=== PATIENT | female | born 2000 | race Caucasian/White ===

== ENCOUNTER 2022-01-10 17:50 | Emergency (ER) | payer OTHER, SELFPAY ==
[2022-01-10 18:14] VITALS: BP 132/80; PULSE 92; RESP 16; TEMP 36.8; O2SAT 100
--- NOTE | 2022-01-10 19:07 | ED.GENADULT ---
HPI - General Adult General Chief complaint: Urogenital-Female Stated complaint: poss uti Source: patient Mode of arrival: ambulatory Limitations: no limitations History of Present Illness HPI narrative: Patient presents for evaluation of urinary symptoms for the last 2 days. Symptoms include incomplete emptying, urgency, foul odor and some mild dysuria. No fever, chills, abdominal pain, nausea, vomiting, low back pain, vaginal bleeding or discharge. She is not . No additional complaints or concerns. Related Data Home Medications Medication Instructions Recorded Confirmed norethindrone 1 mg-ethinyl 1 tablet PO DAILY 01/10/22 01/10/22 estradiol 20 mcg (21)-iron 75 mg (7) tablet (04/07 (28)) Allergies Allergy/AdvReac Type Severity Reaction Status Date / Time No Known Allergies Allergy Verified 01/10/22 18:25 Review of Systems Review of Systems: CONSTITUTIONAL: Denies fever, chills, or sweats. EYES: Denies visual changes, redness, or discharge. ENT: Denies rhinorrhea, congestion, sore throat, or otalgia. CARDIOVASCULAR: Denies chest pain, palpitations, or edema. RESPIRATORY: Denies cough or dyspnea. GASTROINTESTINAL: Denies abdominal pain, nausea, vomiting, or diarrhea. GENITOURINARY: Reports urgency, incomplete emptying, mild dysuria, foul odor to her urine. Denies vaginal bleeding or discharge SKIN: Denies rash or itching. MUSCULOSKELETAL: Denies back pain, joint pain, or myalgia. NEUROLOGIC: Denies headache, numbness, dizziness, or weakness. PSYCHIATRIC: Denies anxiety or depression. [facility] Past Medical History Medical History No pertinent past medical history Surgical History Surgical History No pertinent past surgical history Family History Family History Mother Family history non-contributory Social History Social History Smoking status: Never smoker Substance use: never Gender identity (if verbalized by the patient): Female Exam Narrative: GENERAL: Well-appearing, well-nourished, and in no acute distress. HEAD: Normocephalic, atraumatic. EYES: PERRLA and EOMI. ENT: Nares clear, no rhinorrhea or epistaxis. Mucous membranes moist. Oropharynx without tonsillar hypertrophy exudate or other lesions. Bilateral TMs pearly linares nonbulging NECK: Supple. No adenopathy or masses. No carotid bruits or JVD CHEST: Clear to auscultation. No respiratory distress. No wheezes rales or rhonchi HEART: Regular rate and rhythm. No murmur heard. Normal peripheral pulses. ABDOMEN: Soft, nontender, nondistended, normal active bowel sounds. BACK: No CVA tenderness EXTREMITIES: Normal range of motion. No edema. SKIN: Warm, dry, no rash. NEURO: No focal deficits. Alert and oriented x3. PSYCH: Normal mood and affect. Course Course Emergency Course: This is a 22-year-old female who presented for evaluation of urinary symptoms. Nitrate positive urine. We will send for culture. Treat with Macrobid. Discussed starting Pyridium as well, she was agreeable. Increase hydration. Follow-up outpatient for further evaluation and treatment. Go to the ER for fever, chills, intractable vomiting, increased pain. Patient in agreement with plan of care Level of Care: Express Care Visit Vital Signs Vital signs: Vital Signs Temperature 36.8 C 01/10/22 18:14 Pulse Rate 92 01/10/22 18:14 Respiratory Rate 16 01/10/22 18:14 Blood Pressure 132/80 01/10/22 18:14 Pulse Oximetry 100 01/10/22 18:14 Oxygen Delivery Room Air 01/10/22 18:14 Temperature 36.8 C 01/10/22 18:14 Pulse Rate 92 01/10/22 18:14 Respiratory Rate 16 01/10/22 18:14 Blood Pressure 132/80 01/10/22 18:14 Pulse Oximetry 100 01/10/22 18:14 Oxygen Delivery Room
== END 2022-01-10 19:08 | disposition home or self-care (01) ==
PROVIDERS: Emergency Provider Nurse Practitioner; PCP Internal Medicine
DX: N39.0 Urinary tract infection, site not specified (principal)
CPT/HCPCS: 81003; 87077; 87086; 87186; 99213; G0463

== ENCOUNTER 2022-02-07 17:41 | Emergency (ER) | payer OTHER, SELFPAY ==
--- NOTE | 2022-02-07 17:42 | ED.FEMALEGU ---
HPI - Female Genitourinary General Chief complaint: Urogenital-Female Stated complaint: poss uti Time Seen by Provider: 02/07/22 17:42 Source: patient and RN notes reviewed History of Present Illness HPI Narrative: patient is a 21-year-old female who presents to urgent care with complaints of possible UTI due to urinary frequency, burning and odor. 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 States that she was unable to get the medication filled due to finances and has been using Monistat. Patient states the new symptoms started today. Patient was treated for UTI from our facility on January 10 with Macrobid and culture reflux to E. coli. Patient currently denies of any low back pain, nausea, vomiting, fever, abdominal pain. No other acute complaints. No acute distress noted. Patient aware of the plan of care. Some parts of this dictation were generated by voice recognition software and may contain typographical and/or grammatical inaccuracies. Related Data Home Medications Medication Instructions Recorded Confirmed norethindrone 1 mg-ethinyl 1 tablet PO DAILY 01/10/22 01/10/22 estradiol 20 mcg (21)-iron 75 mg (7) tablet (04/07 (28)) Allergies Allergy/AdvReac Type Severity Reaction Status Date / Time No Known Allergies Allergy Verified 01/10/22 18:25 Review of Systems Review of Systems: CONSTITUTIONAL: Denies fever, chills, or sweats. EYES: Denies visual changes, redness, or discharge. ENT: Denies rhinorrhea, congestion, sore throat, or otalgia. CARDIOVASCULAR: Denies chest pain, palpitations, or edema. RESPIRATORY: Denies cough or dyspnea. GASTROINTESTINAL: Denies abdominal pain, nausea, vomiting, or diarrhea. GENITOURINARY: Reports dysuria, odor SKIN: Denies rash or itching. MUSCULOSKELETAL: Denies back pain, joint pain, or myalgia. NEUROLOGIC: Denies headache, numbness, or weakness. All other systems reviewed are negative, except as documented in HPI. [facility] Past Medical History Medical History (Updated 02/07/22 @ 18:04 by ROBERT Arcos) No pertinent past medical history Surgical History Surgical History No pertinent past surgical history Family History Family History Mother Family history non-contributory Social History Social History Smoking status: Never smoker Substance use: never Gender identity (if verbalized by the patient): Female Comments At the time of my signature, I reviewed and agree with the nursing past medical, surgical, social, and family history. There is no relevant family history pertinent to the patient complaint. Exam Narrative: GENERAL: This is a well-nourished, well-developed patient, in no apparent distress. HEAD: normocephalic, atraumatic. EYES: PERRL. Sclera clear/white. Vision is grossly intact. EARS: External ears normal NOSE: External nose normal with no obvious nasal discharge, nares without redness, no rhinorrhea. THROAT: Mucous membranes moist NECK: Neck supple CARDIOVASCULAR: Regular rate and rhythm without murmurs, gallops, or rubs. RESPIRATORY: Clear to auscultation. Breath sounds equal bilaterally. No wheezes, rales, or rhonchi. SKIN: warm, intact with no suspicious lesions or rash, good texture and turgor. NEURO: awake, alert, and oriented to person, place and time. There were no obvious focal neurologic abnormalities. EXTREMITIES: No clubbing, cyanosis, or edema. BACK: negative bilateral CVA tenderness. Course Course Level of Care: Express Care Visit Vital Signs Vital signs: Vital Signs Temperature 97.7 F 02/07/22 17:46 Pulse Rate 98 02/07/22 17:46 Respiratory Rate 20 02/07/22 17:46 Blood Pressure 146/85 H 02/07/22 17:46 Pulse Oximet
[2022-02-07 17:46] VITALS: BP 146/85; PULSE 98; RESP 20; TEMP 36.5; O2SAT 98
== END 2022-02-07 18:08 | disposition home or self-care (01) ==
PROVIDERS: Emergency Provider Nurse Practitioner Family; PCP Internal Medicine
DX: N39.0 Urinary tract infection, site not specified (principal)
CPT/HCPCS: 81003; 87077; 87086; 87186; 99213; G0463

== ENCOUNTER 2023-02-22 12:33 | Outpatient (CLI) | payer OTHER, SELFPAY ==
[2023-02-22 13:03] LABS: SARS-CoV-2 Ag Negative (Negative)
== END 2023-02-22 12:34 | disposition home or self-care (01) ==
LOC: CHSLAB 12:35
PROVIDERS: PCP Nurse Practitioner Family; Visit Provider Nurse Practitioner Family
DX: R05.9 Cough, unspecified (principal)
CPT/HCPCS: 87426; C9803

== ENCOUNTER 2024-07-26 12:53 | Emergency (ER) | payer OTHER, SELFPAY ==
--- OUTSIDE RECORDS SUMMARY | 2024-07-26 12:56 | XMS_ITS | Referral Summary ---
Author Organization [facility] [address] Address [address] [place] [address] Care Team Providers Care Accredited Pharmacy Technician Name Role Phone Marco Arnett MD Primary Care Provider [phone] Allergies No known active allergies Medications norethindrone-e. estradioL-iron (04/07) 1 mg-20 mcg (21)/75 mg (7) per tablet TAKE 1 TABLET BY MOUTH EVERY DAY 84 tablet 12/04/2022 Active Active Problems Problem Noted Date Diagnosed Date Dysuria 11/03/2021 Social History Tobacco Use Types Packs/Day Years Used Date Smoking Tobacco: Never Smokeless Tobacco: Never Alcohol Use Standard Drinks/Week Comments No 0 (1 standard drink = 0.6 oz pur e alcohol) PHQ-2 Answer Date Recorded PHQ-2 Total Score (If total score is 3 or more points, staff should administer the PHQ-9) 0 10/10/2021 Comments No Sex and Gender Information Value Date Recorded Sex Assigned at Not on file Legal Sex Female 12:04 AM GAS APPLIANCE REPAIRER Gender Identity Not on file Sexual Orientation Not on file Last Filed Vital Signs Vital Sign Reading Time Taken Comments Blood Pressure 118/78 04/04/2023 6:56 PM GAS APPLIANCE REPAIRER Pulse 107 04/04/2023 6:56 PM GAS APPLIANCE REPAIRER Temperature 36.2 C (97.2 F) 04/04/2023 6:56 PM GAS APPLIANCE REPAIRER Respiratory Rate 18 04/04/2023 6:56 PM GAS APPLIANCE REPAIRER Oxygen Saturation 97% 04/04/2023 6:56 PM GAS APPLIANCE REPAIRER Inhaled Oxygen Concentration - - Weight 67.6 kg (149 lb) 04/04/2023 6:56 PM GAS APPLIANCE REPAIRER Height 160 cm (5' 3 ) 04/04/2023 6:56 PM GAS APPLIANCE REPAIRER Body Mass Index 26.39 04/04/2023 6:56 PM GAS APPLIANCE REPAIRER Plan of Treatment Not on file Procedures Procedure Name Priority Date/Time Associated Diagnosis Comments HEPATITIS C ANTIBODY Routine 01/31/2022 9:57 AM GAS APPLIANCE REPAIRER Screening for STD (sexually transmitted disease) N. GONORRHOEAE/C. TRACHOMATIS AMPLIFICATION Routine 10/27/2021 3:39 PM CDT Screen for STD (sexually transmitted disease) PAP WITH REFLEX TO HIGH RISK HPV Routine 10/10/2021 3:58 PM CDT Well woman exam Screening examination for STD (sexually transmitted disease) from Last 3 Months or Most Recently Relevant to Health Maintenance Results * Hepatitis C antibody (01/31/2022 9:57 AM GAS APPLIANCE REPAIRER) Hep C Ab Nonreactive Nonreactive [facility] ([place]) Comment: Interpretive Data Nonreactive: Antibodies to HCV not detected. Does NOT exclude the possibility of recent exposure to HCV. Equivocal: Equivocal for HCV antibodies. Supplemental molecular testing will be automatically performed to determine infection status in accordance with current CDC screening recommendations. Reactive: Positive for HCV antibodies. This may represent current or past HCV infection. Supplemental molecular testing will be automatically performed to determine current infection status in accordance with current CDC screening recommendations. Interpretive data was last revised on 2019. Testing performed by: [facility], [address] [place] [address], [place]., [address] Blood 01/31/2022 9:57 AM GAS APPLIANCE REPAIRER 01/31/2022 4:36 PM GAS APPLIANCE REPAIRER us Rosaura Martin NP LAB MICROBIOLOGY - GENERAL ORDERABLES Final Result [facility] ([place]) [address] [facility] [place] [address] * N. gonorrhoeae/C. trachomatis Amplification Urine (10/27/2021 3:39 PM CDT) C. trachomatis RNA Negative Negative [facility] - 01 N. gonorrhoeae RNA Negative Negative [facility] - 01 Urine (None) 10/27/2021 3:39 PM CDT 10/27/2021 Comment:none Narrative [facility] - 10/28/2021 9:07 PM CDT Performed at: [address] [id number] Marble Cutter Operator: Yarely Way MD, Phone: [phone] Bernadette Manuel CARPENTER ROUGH LAB MICROBIOLOGY - GENERA L ORDERABLES Final Result [facility] - * Pap with reflex to High Risk HPV (10/10/2021 3:58 PM CDT) Clinical indication Comment [facility] - 01 Comment:NEGATIVE FOR INTRAEP ITHELIAL LESION OR MALIGNANCY. Specimen adequacy: Comment [facility] - 01 Comment: Satisfactory for evaluation. Endocervical and/or squamous metaplastic cells (endocervical component) are present. Clinician provided ICD10 Comment [facility] - 01 Comment: Z01.419 Z11.3 Performed by Comment [facility] - 01 Comment:Amirah Flores, Cytotec hnologist (ASCP) . . [facility] - 01 Note: Comment [facility] - 01 Comment: The Pap smear is a screening test designed to aid in the detection of premalignant and malignant conditions of the uterine cervix. It is not a diagnostic procedure and should not be used as the sole means of detecting cervical cancer. Both false-positive and false-negative reports do occur. Test methodology Comment [facility] - 01 Comment: This liquid based ThinPrep(R) pap test was screened with the use of an image guided system. . Comment [facility] - 01 Comment: The HPV DNA reflex criteria were not met with this specimen result therefore, no HPV testing was performed. Thin prep 10/10/2021 3:58 PM CDT 10/12/2021 Narrative [facility] - 10/13/2021 10:11 AM CDT Performed at: - [address] [id number] Marble Cutter Operator: Yarely Way MD, Phone: [phone] Specimen Comment: No. of containers..01 ThinPrep Vial us Bernadette Manuel [facility] LAB CYTOLOGY ORDERABLES F inal Result [facility] - 01 from Last 3 Months or Most Recently Relevant to Health Maintenance Insurance [facility] [place] HMO/PPO Address: [address] [address] Care Teams Accredited Pharmacy Technician Relationship Specialty Start Date End Date Marco Arnett MD [address] [place] [address] PCP - General Pediatrics 11/04/17
--- OUTSIDE RECORDS SUMMARY | 2024-07-26 12:56 | XMS_ITS | Clinical Summary ---
Author Organization [facility] Address [address] [place] [address] Care Team Providers Care Trolley Car Mechanic Name Role Phone Abimbola Cross MD Primary Care Provider [phone] Source Comments [facility],non-owned Affiliates and Associated Physician Practices is amultiple site organization consisting of ambulatory clinics and hospital sitesin [place], [place], [place] and [place]. This disclosure is being madepursuant to the Care Everywhere program and may not contain all information available regarding this patient. Last updated 17.[facility] Allergies No known active allergies Medications * Be aware that medications may not be up to date on this document. Alwaysverify current medications with the patient. norethin-eth estradiol-FE (LOESTRIN FE 04/07; JUNEL FE 04/07; MICROGESTIN FE 04/07) 1-20 MG-MCG tabletIndication s:Contraceptive Therapy Take 1 tablet by mouth once daily Reasons: Control Treatment 3 packet 2 0 Active norethin-eth estrad-fe biphas (LO LOESTRIN FE) 1 MG-10 MCG / 10 MCG tablet Take 1 (one) tablet by mouth once daily 3 packet 1 Active Active Problems No known active problems Immunizations Immunization Administration Dates Next Due INFLUENZA VACCINE, QUADR. (F LUZONE; FLULAVAL; FLUARIX; AFLURIA QUADRIVALENT; 6MO+), 0.5 ML (IIV4) 01/29/2018 Family History Medical History Relation Name Comments Anxiety Disorder Father CAD (Coronary Artery Disease) Maternal Grandfather Cancer - Lung Maternal Grandmother Anxiety Disorder Mother Cancer - Breast Paternal Aunt >50 Diabetes - Type 2 Paternal Grandfather Anxiety Disorder Sister Relation Name Status Comments Father Alive Maternal Grandfather Maternal Grandmother Mother Alive Paternal Aunt Paternal Grandfather Sister Alive Social History Tobacco Use Types Packs/Day Years Used Date Smoking Tobacco: Never Smokeless Tobacco: Never Alcohol Use Standard Drinks/Week Comments No 0 (1 standard drink = 0.6 oz pur e alcohol) Comments No Sex and Gender Information Value Date Recorded Sex Assigned at Not on file Legal Sex Female 2:04 PM CDT Gender Identity Not on file Sexual Orientation Not on file Last Filed Vital Signs Vital Sign Reading Time Taken Comments Blood Pressure 126/66 11/14/2019 3:11 PM CDT Pulse 92 11/14/2019 3:11 PM CDT Temperature 36.7 C (98 F) 11/14/2019 3:11 PM CDT Respiratory Rate 18 11/14/2019 3:11 PM CDT Oxygen Saturation 99% 11/14/2019 3:11 PM CDT Inhaled Oxygen Concentration - - Weight 59 kg (130 lb) 11/14/2019 3:11 PM CDT Height 160 cm (5' 3 ) 11/14/2019 3:11 PM CDT Body Mass Index 23.03 11/14/2019 3:11 PM CDT Plan of Treatment Health Maintenance Due Date Last Done Comments HIV SCREENING 10/05/2014 HPV VACCINE (1 - 3-dose series) 10/05/2014 HEPATITIS C SCREENING 10/01/2017 DTAP/TDAP/TD VACCINES (1 - Tdap) 10/05/2018 HEPATITIS B VACCINE (1 of 3 - 19+ 3-dose series) 10/05/2018 CHLAMYDIA/GONORRHEA SCREENING 06/25/2019 06/24/2018 COVID-19 VACCINE (1 - 2023-2 5 season) 2023 DEPRESSION SCREENING 03/19/2024 INFLUENZA VACCINE (Season Ended) 2024 01/30/20 18 ZOSTER VACCINE (1 of 2) 10/05/2049 HIB VACCINE Aged Out No longer eligi ble based on patient's age to complete this topic MENINGOCOCCAL (Group B) VACC INE SHARED DECISION-MAKING Aged Out No longer eligibl e based on patient's age to complete this topic MENINGOCOCCAL GROUPS A/C/Y/W VACCINE Aged Out No longer eligible b ased on patient's age to complete this topic PNEUMOCOCCAL VACCINE Aged Out No long er eligible based on patient's age to complete this topic Procedures Procedure Name Priority Date/Time Associated Diagnosis Comments VAGINITIS PLUS (BV CA CT NG TRICH) Routine 06/24/2018 3:32 PM CDT Vaginal burning from Last 3 Months or Most Recently Relevant to Health Maintenance Results * VAGINITIS PLUS (BV CA CT NG TRICH) (06/24/2018 3:32 PM CDT) Atopobium vaginae Low - 0 Score [facility] ACCOUNT BILL BVAB 2 Low - 0 Score [facility] ACCOUNT BILL Megashaera Low - 0 Score [facility] ACCOUNT BILL Comment: Calculate total score by adding the 3 individual bacterial vaginosis (BV) marker scores together. Total score is interpreted as follows: Total score 0-1: Indicates the absence of BV. Total score 2: Indeterminate for BV. Additional clinical data should be evaluated to establish a diagnosis. Total score 3-6: Indicates the presence of BV. . This test was developed and its performance characteristics determined by [facility]. It has not been cleared or approved by the Food and Drug Administration. The FDA has determined that such clearance or approval is not necessary. Jenifer albicans SANJAY Negative Negative [facility] ACCOUNT BILL Jenifer glabrata SANJAY Negative Negative [facility] ACCOUNT BILL Comment: This test was developed and its performance characteristics determined by [facility]. It has not been cleared or approved by the Food and Drug Administration. The FDA has determined that such clearance or approval is not necessary. Trichomonas vaginalis by SANJAY Negative Negative [facility] ACCOUNT BILL Chlamydia Trachomatis SANJAY Negative Negative [facility] ACCOUNT BILL GC SANJAY Negative Negative [facility] ACCOUNT BILL Microbiology ENTIRE VAGINA / Unknown 06/24/2018 3:32 PM CDT 06/24/2018 Narrative Resulting Agency Comment [facility] [address] [id number] Alana Andino MD LAB - MICROBIOLOGY ORDERABLES Final Result [facility] ACCOUNT BILL [address] [place] [address] from Last 3 Months or Most Recently Relevant to Health Maintenance Insurance [employer] Care Teams Trolley Car Mechanic Relationship Specialty Start Date End Date Abimbola Cross MD PCP - General Family Medicine 01/29/18
--- OUTSIDE RECORDS SUMMARY | 2024-07-26 12:56 | XMS_ITS | Clinical Summary ---
Author Organization [facility] [id number] [place] Address [address] [place] [address] Care Team Providers Care Linen Room Houseperson Name Role Phone Marco Arnett MD Primary Care Provider [phone] Allergies No known active allergies Medications norethindrone-e. estradioL-iron (04/07) 1 mg-20 mcg (21)/75 mg (7) per tablet TAKE 1 TABLET BY MOUTH EVERY DAY 84 tablet 12/04/2022 Active Active Problems Problem Noted Date Diagnosed Date Dysuria 11/03/2021 Family History Medical History Relation Name Comments Hyperlipidemia Father Hypertension Father Ovarian cancer Father's Sister Heart disease Maternal Grandfather Lung cancer Maternal Grandmother Crohn's disease Mother Heart disease Paternal Grandfather Relation Name Status Comments Father Father's Sister Maternal Grandfather Maternal Grandmother Mother Paternal Grandfather Social History Tobacco Use Types Packs/Day Years [...] on file Legal Sex Female 12:04 AM DIGITAL IMAGER Gender Identity Not on file Sexual Orientation Not on file Obstetrics History Para Term AB IAB SAB Ectopic Multiple Livin g Live Births 0 0 0 0 0 0 0 0 0 0 0 Last Filed Vital Signs Vital Sign Reading Time Taken Comments Blood Pressure 118/78 04/04/2023 6:56 PM DIGITAL IMAGER Pulse 107 04/04/2023 6:56 PM DIGITAL IMAGER Temperature 36.2 C (97.2 F) 04/04/2023 6:56 PM DIGITAL IMAGER Respiratory Rate 18 04/04/2023 6:56 PM DIGITAL IMAGER Oxygen Saturation 97% 04/04/2023 6:56 PM DIGITAL IMAGER Inhaled Oxygen Concentration - - Weight 67.6 kg (149 lb) 04/04/2023 6:56 PM DIGITAL IMAGER Height 160 cm (5' 3 ) 04/04/2023 6:56 PM DIGITAL IMAGER Body Mass Index 26.39 04/04/2023 6:56 PM DIGITAL IMAGER Plan of Treatment Health Maintenance Due Date Last Done Comments DTaP/Tdap/Td Vaccine (2 - Tdap) 10/05/2010 04/30/2001 Varicella Vaccines (1 of 2 - 13+ 2-dose series) 10/05/2012 HPV Vaccines (1 - 3-dose series) 10/05/2014 Hepatitis B Screening 10/05/2017 Cervical Cancer Screening 10/10/2022 10/10/2021 Depression Screening 10/10/2022 10/10/2021, 10/04/2020 Regular Well Visit/Exam 18-64 10/10/2022, 10/04/2020 Chlamydia and Gonorrhea (GC/CT) Screening 10/27/2022 10/27/2021, 10/10/2021, 10/04/2020 Influenza Vaccine (Season Ended) 2024 01/29/2018 Hepatitis C Screening Completed 01/31/2022 Pneumococcal vaccine <65 Aged Out No longer eligible based on patient's age to complete this topic Procedures Procedure Name Priority Date/Time Associated Diagnosis Comments HEPATITIS C ANTIBODY Routine 01/31/2022 9:57 AM DIGITAL IMAGER Screening for STD (sexually transmitted disease) N. GONORRHOEAE/C. TRACHOMATIS AMPLIFICATION Routine 10/27/2021 3:39 PM CDT Screen for STD (sexually transmitted disease) PAP WITH REFLEX TO HIGH RISK HPV Routine 10/10/2021 3:58 PM CDT Well woman exam Screening examination for STD (sexually transmitted disease) from Last 3 Months or Most Recently Relevant to Health Maintenance Results * Hepatitis C antibody (01/31/2022 9:57 AM DIGITAL IMAGER) Pathologist [facility] Hep C Ab Nonreactive Nonreactive [facility] ([place]) Comment: Interpretive Data Nonreactive: Antibodies to HCV [...] last revised on 2019. Testing performed by: [facility], [address] [place] [address]., [id number] Blood 01/31/2022 9:57 AM DIGITAL IMAGER 01/31/2022 4:36 PM DIGITAL IMAGER us Rosaura Martin CONSTRUCTION ENGINEERING MANAGER LAB MICROBIOLOGY - GENERAL ORDERABLES Final Result Performing Organization Address City/[facility]/ZIP Co de Phone Number [facility] ([place]) [address] [facility] Department [place] [address] * N. gonorrhoeae/C. trachomatis Amplification Urine (10/27/2021 3:39 PM CDT) [facility] C. trachomatis RNA Negative Negative [facility] - 01 N. gonorrhoeae RNA Negative Negative [facility] - 01 Urine (None) 10/27/2021 3:39 PM CDT 10/27/2021 Comment:none Narrative [facility] - 10/28/2021 9:07 PM CDT Performed at: 01 - [facility] [id number] Authorization Representative: Yarely Way MD, Phone: [phone] us Bernadette Manuel CONSTRUCTION ENGINEERING MANAGER LAB MICROBIOLOGY - GENERA L ORDERABLES Final Result [facility] - 01 * Pap with reflex to High Risk [...] do occur. Test methodology Comment [facility] - Comment: This liquid based ThinPrep(R) pap test was screened with the use of an image guided system. . Comment [facility] - Comment: The HPV DNA reflex criteria were not met with this specimen result therefore, no HPV testing was performed. Thin prep 10/10/2021 3:58 PM CDT 10/12/2021 Narrative [facility] - 10/13/2021 10:11 AM CDT Performed at: [address] [id number] Authorization Representative: Yarely Way MD, Phone: [phone] Specimen Comment: No. of containers..01 ThinPrep Vial us Bernadette Manuel CONSTRUCTION ENGINEERING MANAGER LAB CYTOLOGY ORDERABLES F inal Result [facility] - from Last 3 Months or Most Recently Relevant to Health Maintenance Insurance [facility] H[facility]/PPO Address: [address] [address] Care Teams Linen Room Houseperson Relationship Specialty Start Date End Date Marco Arnett MD [address] [place] [address] PCP - General Pediatrics 11/04/17
--- OUTSIDE RECORDS SUMMARY | 2024-07-26 12:56 | XMS_ITS | Encounter Summary ---
Author Organization [facility] Address [address] [place] [address] Phone Care Team Providers Care Public Health Technician Name Role Phone No, Physician Primary Care Provider [phone] Marco Arnett MD Primary Care Provider [phone] Encounter Details Date Type Department Care Team (Late st Contact Info) Description 02/24/2017 Orders Only [facility] ProviderSalbador MD [address] [place] [id number] Social History Tobacco Use Types Packs/Day Years Used Date Smoking Tobacco: Never Smokeless Tobacco: Never Comments Unknown Sex and Gender Information Value Date Recorded Sex Assigned at Not on file Legal Sex Female 12:04 AM SUPERINTENDENT LOCAL Gender Identity Not on file Sexual Orientation Not on file documented as of this encounter Plan of Treatment Not on file documented as of this encounter Procedures Procedure Name Priority Date/Time Associated Diagnosis Comments DISCHARGE LABORATORY CUMULATIVE REPORT 02/24/2017 12:00 AM SUPERINTENDENT LOCAL documented in this encounter Results * DISCHARGE LABORATORY CUMULATIVE REPORT (02/24/2017 12:00 AM SUPERINTENDENT LOCAL) Narrative 02/24/2017 12:00 AM SUPERINTENDENT LOCAL Ordered by an unspecified provider. Historical Provider LAB BLOOD ORDERABLES Lulu l Result documented in this encounter Visit Diagnoses Not on filedocumented in this encounter Care Teams Public Health Technician Relationship Specialty Start Date End Date No, Physician PCP - General 02/24/17 11/03/17 Marco Arnett MD [address] [place] [address] PCP - General Pediatrics 11/04/17 documented as of this encounter
--- NOTE | 2024-07-26 13:04 | ED_ITS ---
HPI - URI/Sore Throat General Chief Complaint: Upper Respiratory Infection Stated Complaint: pressure in ears/forehead,runny nose Time Seen by Provider: 07/26/24 13:13 Source: patient and RN notes reviewed Mode of arrival: ambulatory Limitations: no limitations History of Present Illness HPI Narrative: 23-year-old female presents with concern for 2 week history of nasal congestion, rhinorrhea, sinus pain, cough. Reports she has taken [id number] medications without relief. MD elicited complaint: cough, nasal congestion and sinus pain Related Data Allergies Allergy/AdvReac Type Severity Reaction Status Date / Time No Known Allergies Allergy Verified 07/26/24 13:15 Review of Systems Review of Systems: CONSTITUTIONAL: Denies malaise, chills, sweats, or fever. EYES: Denies visual changes, redness, or discharge. ENT: Reports rhinorrhea, congestion, sinus pain CARDIOVASCULAR: Denies chest pain, palpitations, or edema. RESPIRATORY: Reports cough. Denies dyspnea. GASTROINTESTINAL: Denies abdominal pain, nausea, vomiting, diarrhea SKIN: Denies rash or itching. MUSCULOSKELETAL: Denies myalgia. NEUROLOGIC: Denies headache. All systems reviewed & are unremarkable except as noted in HPI and below PMFSH Past Medical History Medical History No pertinent past medical history Surgical History Surgical History No pertinent past surgical history Family History Family History (Updated 04/19/22 @ 17:42 by Sujatha White APRN) Mother Depression Anxiety Crohn's disease Father Depression Hyperlipidemia Grandparent Diabetes mellitus Grandparent Heart disease Social History Social History Smoking status: Never smoker Substance use: never Gender identity (if verbalized by the patient): Female Comments At time of signature, agree with nursing past medical, surgical, social and family history. There is no relevant family history pertinent to the presenting complaint Exam Narrative: GENERAL: Well-appearing, well-nourished, and in no acute distress. HEAD: Normocephalic EYES: PERRLA, conjunctivae clear ENT: Nares clear, turbinates edematous and erythematous. Mucous membranes moist. TM pearly linares with dull light reflex bilaterally; no tragal tenderness. Oropharynx not erythematous without lesions. Tonsils not enlarged and without exudate, no drooling, no hoarseness, no trismus, uvula midline. NECK: Supple. No lymphadenopathy CHEST: Clear to auscultation, breath sounds equal. No wheezing, rhonchi, rales, or stridor. No respiratory distress, speaks in full sentences. HEART: Regular rate and rhythm. No murmur heard. SKIN: Warm, dry, no rash. NEURO: Alert and oriented x3. PSYCH: Normal mood and affect Course Course Emergency Course: Patient is aware of diagnosis, understands and agrees to treatment plan. Anticipatory guidance given. Patient agrees to follow-up as directed and is aware of reasons to seek care at the emergency department. Portions of this record may have been created with voice recognition software Level of Care: Express Care Visit Vital Signs Vital signs: Reviewed. MDM - URI/Sore Throat MDM Narrative Medical decision making narrative: Differential diagnosis considered: Goodwin virus, strep pharyngitis, allergic rhinitis, upper respiratory tract infection, sinusitis, rhinosinusitis, nasopharyngitis. viral pharyngitis, otitis media, otitis externa, pneumonia, bronchitis, viral cough syndrome, viral syndrome, and influenza. Exam findings show no acute concerns or changes; patient is non-toxic appearing and is in no distress. Patient is appropriate for outpatient treatment and follow-up. Lab Data Attestation: I reviewed the patient's lab results. Critical Care Time Critical Care Time Critical Care Time: No Discharge Plan Discharge Clinical Impression: Sinobronchitis Patient Disposition: Home Condition: Stable Instructions: Antibiotic Form, Sinusitis (ED) Additional Instructions: Viral illness may last between 7-21 days; antibiotics do not cure viral illness and are NOT recommended at this time. Recommend antihistamine such as Benadryl at night time and Zyrtec or Susy during the day Cough syrup may cause drowsiness; avoid driving or take it at night time. Use inhaler as needed for cough, wheezing, shortness of breath or chest tightness. Also, recommend symptomatic treatment includes: rest, fluids, and increase humidity of the air at home. Recommend Acetaminophen as directed on the bottle to reduce fever, pain, headache. Avoid smoking/second-hand smoke. Please schedule a follow-up visit with your personal physician for further evaluation and treatment within 3-5days. Including recheck and discussion of your blood pressure. If your symptoms persist, change or worsen significantly before you can contact your personal physician then please, without delay, go to the emergency department for further evaluation. Patient Language: Citizen Of [place] Prescriptions: New methylprednisolone [Medrol (Dirk)] 4 mg tablets,dose pack See Rx Instructions .ROUTE .COMPLEX Qty: 21 0RF Rx Instructions: orally per package directions amoxicillin-pot clavulanate 875-125 mg tablet 1 tablet PO Q12H 10 Days Qty: 20 0RF Follow-up/Referrals: UNKNOWN,DOCTOR [Primary Care Provider] - Time of Disposition: 13:22
[2024-07-26 13:08] VITALS: BP 152/92; PULSE 108; RESP 18; TEMP 36.9; O2SAT 100
== END 2024-07-26 13:25 | disposition home or self-care (01) ==
PROVIDERS: Emergency Provider Nurse Practitioner
DX: J32.9 Chronic sinusitis, unspecified (principal); J40 Bronchitis, not specified as acute or chronic
CPT/HCPCS: 99213; G0463